=== PATIENT | male | born 1980 | race Caucasian/White ===

== ENCOUNTER → 2020-08-12 | Outpatient (CLI) | payer OTHER ==
--- NOTE | 2020-08-12 16:12 | XR ---
Cervical spine with flexion and extension HISTORY: M 54.2 7 views of the cervical spine There is reversal the normal cervical lordosis. There is no evident foraminal encroachment. Cervical vertebral bodies show preserved height. Anterolisthesis grade 1 C3-4, C4-5, there is loss of disc hei ght C5-6 and C6-7 with associated spondylosis. Minimal accentuated anterolisthesis noted at C5-6 on f lexion views of approximately 2 mm normalizes on extension as does the listhesis at C3-4. At C4-5 the re is a retrolisthesis grade 1 on extension view approximately 2 mm. Vacuum phenomenon also noted at the intervertebral disc spaces at C5-6 and C6-7. Set arthropathy changes are present. IMPRESSION: Degenerative disc disease, facet arthropathy, spinal listhesis.
== END | disposition home or self-care (01) ==
LOC: RADXRMAIN 14:42
PROVIDERS: ATTEND Family Medicine
DX: M50.30 Other cervical disc degeneration, unspecified cervical region (principal); M12.88 Other specific arthropathies, not elsewhere classified, other specified site
CPT/HCPCS: 72052

== ENCOUNTER → 2021-08-26 | Outpatient (CLI) | payer OTHER ==
[2021-08-26 20:18] LABS: Appearance,Urine Cloudy (Clear); Bilirubin,Urine Negative (Negative); Blood,Urine Negative (Negative); Color,Urine Yellow (Yellow); Ketones,Urine Trace mg/dL (Negative); Nitrite,Urine Negative (Negative); PH, Urine 7.5 (5.0-8.0); Specific Gravity,Urine 1.021 (1.001-1.030)
[2021-08-26 21:41] LABS: Amorphous Sediment,Urine Present /LPF (None Seen); Bacteria,Urine 3+ /HPF (None Seen)
== END | disposition home or self-care (01) ==
LOC: LABWHC1 13:31
PROVIDERS: ATTEND Family Medicine
DX: Z00.00 Encounter for general adult medical examination without abnormal findings (principal); R00.0 Tachycardia, unspecified
CPT/HCPCS: 36415; 81001

== ENCOUNTER → 2021-08-27 | Outpatient (CLI) | payer OTHER ==
[2021-08-27 19:05] LABS: Basophils # (A) 0.06 X 10*3/uL (0.00-0.10); Basophils % (A) 1.1 %; Eosinophils # (A) 0.22 X 10*3/uL (0.04-0.35); HCT 47.1 % (39.6-50.0); HGB 15.4 g/dL (13.0-17.0); Immature Grans, Automated 0.2 %; Lymphocytes # (A) 1.54 X 10*3/uL (0.90-5.00); Lymphocytes % (A) 28.2 %; MCH 29.2 pg (27.0-32.0); MCHC 32.7 g/dL (32.0-37.0); MCV 89.4 fL (80.0-97.0); Mean Platelet Volume 10.3 fL (9.5-12.2); Monocytes # (A) 0.63 X 10*3/uL (0.20-1.00); Monocytes % (A) 11.5 %; NRBC Per 100 WBC 0 /100 WBCS (0.0-0.0); Neutrophils # (A) 3.01 X 10*3/uL (1.80-7.70); Platelet Count 292 X 10*3/uL (140-440); RBC 5.27 X 10*6/uL (4.40-5.60); RDW 12.1 % (11.5-14.5); WBC 5.47 X 10*3/uL (4.50-10.00)
[2021-08-27 19:44] LABS: ALT 15 U/L (10-49); AST 17 U/L (14-35); African American GFR (CKD) 126.6 (60.0-200.0); Albumin 4.6 g/dL (3.8-4.9); Albumin/Globulin Ratio 1.69 (1.60-3.17); Alkaline Phosphatase 90 U/L (41-126); BUN/Creat Ratio 14.94 Ratio (12.00-20.00); Calcium 9.5 mg/dL (8.7-10.3); Chloride 104 mmol/L (96-109); Chol/HDL Ratio 2.71 Ratio; Globulin 2.8 g/dL (1.6-3.3); Glucose 87 mg/dL (70-110); LDL Cholesterol,Calculated 92.9 mg/dL (0.0-131.0); Non-African American GFR(CKD) 109.2 (60.0-200.0); Potassium 4.4 mmol/L (3.5-5.5); Sodium 140 mmol/L (135-145); Total Protein 7.4 g/dL (6.2-8.2); VLDL Calculation 17.02 mg/dL (5.00-40.00)
== END | disposition home or self-care (01) ==
LOC: LABWHC1 13:07
PROVIDERS: ATTEND Family Medicine
DX: Z00.00 Encounter for general adult medical examination without abnormal findings (principal); R00.0 Tachycardia, unspecified
CPT/HCPCS: 36415; 80053; 80061; 84443; 85025

== ENCOUNTER 2022-05-31 07:46 | Observation (INO) | payer OTHER ==
[2022-05-31] MEDS ORDERED: SODIUM CHLORIDE 0.9% 1,000 ML IV STA ×3 (07:56→11:30)
[2022-05-31] MEDS ORDERED: KETOROLAC 15 MG/ML 1 ML VIAL IVP STA (07:56)
--- NOTE | 2022-05-31 08:33 | ED ---
Abdominal Pain HPI - General Chief Complaint: Abdominal Pain Stated Complaint: poss kidney infection Time Seen by Provider: 05/31/22 07:56 Source: patient, RN notes reviewed Mode of arrival: ambulatory Limitations: no limitations - History of Present Illness Initial Comments: This is a 41-year-old male who presents to the emergency department with left f lank pain. States that he was diagnosed with a kidney stone on the left side in March. He had been doing okay, however last night he began to develop severe pain in the left flank wrapping around into the abdomen. Also notes fevers and chills. Denies any urinary symptoms, nausea, or vomiting. Denies any sore throat, cough, dyspnea, chest pain, palpitations, nausea, vomiting, diarrhea, or headaches. MD Complaint: flank pain Onset/Timin -: days(s) Location: L flank Associated Symptoms: fever, chills - Related Data Home Medications Medication Instructions Recorded Confirmed No Known Home Medications 05/31/22 05/31/22 Allergies Allergy/AdvReac Type Severity Reaction Status Date / Time No Known Allergies Allergy Verified 05/31/22 12:40 Review of Systems ROS Statement: Those systems with pertinent positive or pertinent negative responses have been documented in the HPI. ROS Other: All systems not noted in ROS Statement are negative. Past Medical History Past Medical History: No Reported History History of Any Multi-Drug Resistant Organisms: None Reported Past Surgical History: Orthopedic Surgery Past Psychological History: No Psychological Hx Reported Smoking Status: Former smoker Past Alcohol Use History: Occasional Past Drug Use History: Methamphetamine General Exam Limitations: no limitations General appearance: alert, in no apparent distress Head exam: Present: atraumatic, normocephalic, normal inspection Respiratory exam: Present: normal lung sounds bilaterally. Absent: respiratory distress, wheezes, rales, rhonchi, stridor Cardiovascular Exam: Present: regular rate, normal rhythm, normal heart sounds. Absent: systolic murmur, diastolic murmur, rubs, gallop, clicks GI/Abdominal exam: Present: soft, normal bowel sounds. Absent: distended, tenderness, guarding, rebound, rigid Back exam: Present: CVA tenderness (L) Neurological exam: Present: alert, oriented X3, CN II-XII intact Psychiatric exam: Present: normal affect, normal mood Skin exam: Present: warm, dry, intact, normal color. Absent: rash Course Vital Signs 05/31/22 05/31/22 05/31/22 07:50 11:00 13:00 Temperature 99.8 F H 100.6 F H 101.3 F H Pulse Rate 118 H 108 H 107 H Pulse Rate [ Pulse Oximetery ] Respiratory 16 18 16 Rate Blood Pressure 114/71 127/84 112/65 Blood Pressure [Right Arm] O2 Sat by Pulse 100 100 97 Oximetry 05/31/22 05/31/22 14:00 14:49 Temperature 99.4 F 99.8 F H Pulse Rate Pulse Rate [ 107 H Pulse Oximetery ] Respiratory 16 Rate Blood Pressure Blood Pressure 118/64 [Right Arm] O2 Sat by Pulse 100 Oximetry Medical Decision Making - Medical Decision Making This is a 41-year-old male who presents to the emergency department for left flank pain. Was pt. sent in by a medical professional or institution? @ -No Did you speak to anyone other than the patient for history? @ -No Did you review nursing and triage notes? @ -Yes, and I agree, it is accurate with regards to the patient's symptoms. Were old charts reviewed? @ -Yes, computed tomography scan from 04/08/22 revealing a calculus in the left ureter and left kidney. Differential Diagnosis? @ -Differential Back Pain: Strain, zoster, cauda equina syndrome, epidural abscess, vertebral osteomyelitis, discitis, fracture, subluxation, disc herniation, DJD, spinal stenosis, dissection, AAA, pancreatitis, peptic ulcer disease, pyelonephritis, kidney stone, this is not meant to be an all-inclusive list. CT interpreted by me (1pt min.)? @ -Computed tomography scan of the abdomen and pelvis obtained. My interpretation identifies a left ureteral calculus with hydroureteronephrosis. What testing was considered but not performed? (CT, X-rays, U/S, labs)? Why? @ -None What meds were considered but not given? Why? @ -None Did you discuss the management of the patient with other professionals? @ -Yes, Dr. Gómez, urology, who advises admission with IV abx and keeping the patient NPO. I then spoke with Dr. Buckley, who accepts the patient for admission. Did you reconcile home meds? @ -No Was smoking cessation discussed for >3mins.? @ -No Was critical care preformed (if so, how long)? @ -No Were there social determinants of health that impacted care today? How? (Homelessness, low income, unemployed, alcoholism, drug addiction, transportation, low edu. Level, literacy, decrease access to med. care, alf, rehab)? @ -No Was there de-escalation of care discussed even if they declined? (Discuss DNR or withdrawal of care, Hospice)? @ -No What co-morbidities impacted this encounter? (DM, HTN, Smoking, COPD, CAD, C ancer, CVA, Hep., AIDS, mental health diagnosis, sleep apnea, morbid obesity)? @ -None Was patient admitted / discharged? @ -Admitted. Lab work obtained revealing leukocytosis. Urinalysis is consistent with infection. Computed tomography scan of the abdomen and pelvis reveals a left ureteral calculus with hydroureteronephrosis. Patient meets sepsis criteria with the leukocytosis, tachycardia, fever, and a known source of infection. Patient given 2 L bolus of IV fluids and started on maintenance fluids at 130 mL/hr. He was also given a dose of ceftriaxone with blood and urine cultures obtained prior. Toradol and later Ofirmev administered for the fever. Case discussed with Dr. Gómez, urology, who advised admission to medicine with urology on consult. He also requested the patient be kept NPO for possible surgical intervention today. Undiagnosed new problem with uncertain prognosis? @ -None Drug Therapy requiring intensive monitoring for toxicity (Heparin, Nitro, In sulin, Cardizem)? @ -None Were any procedures done? @ -None Diagnosis/symptom? @ -Sepsis secondary to UTI, left renal calculus Acute, or Chronic, or Acute on Chronic? @ -Acute Uncomplicated (without systemic symptoms) or Complicated (systemic symptoms)? @ -Complicated Side effects of treatment? @ -None Exacerbation, Progression, or Severe Exacerbation] @ -Not applicable Poses a threat to life or bodily function? @ -Yes This case was discussed in detail with the attending ED physician, Dr. Peng. Presentation, findings, and treatment plan discussed in detail as well. - Lab Data Result diagrams: 05/31/22 08:12 05/31/22 08:12 Lab Results 05/31/22 05/31/22 05/31/22 Range/Units 08:12 08:12 08:12 WBC 22.4 H (3.8-10.6) k/uL RBC 4.86 (4.30-5.90) m/uL Hgb 14.8 (13.0-17.5) gm/dL Hct 42.1 (39.0-53.0) % MCV 86.6 (80.0-100.0) fL MCH 30.4 (25.0-35.0) pg MCHC 35.1 (31.0-37.0) g/dL RDW 12.6 (11.5-15.5) % Plt Count 293 (150-450) k/uL MPV 7.2 Neutrophils % 91 % Lymphocytes % 3 % Monocytes % 4 % Eosinophils % 1 % Basophils % 0 % Neutrophils # 20.3 H (1.3-7.7) k/uL Lymphocytes # 0.6 L (1.0-4.8) k/uL Monocytes # 1.0 (0-1.0) k/uL Eosinophils # 0.2 (0-0.7) k/uL Basophils # 0.0 (0-0.2) k/uL Sodium 136 L (137-145) mmol/L Potassium 4.1 (3.5-5.1) mmol/L Chloride 103 (98-107) mmol/L Carbon Dioxide 24 (22-30) mmol/L Anion Gap 9 mmol/L BUN 12 (9-20) mg/dL Creatinine 1.29 H (0.66-1.25) mg/dL Est GFR (CKD-EPI)AfAm 78 (>60 ml/min/1.73 sqM) Est GFR (CKD-EPI)NonAf 68 (>60 ml/min/1.73 sqM) Glucose 110 H (74-99) mg/dL Plasma Lactic Acid Blake 1.5 (0.7-2.0) mmol/L Calcium 9.3 (8.4-10.2) mg/dL Total Bilirubin 1.5 H (0.2-1.3) mg/dL AST 35 (17-59) U/L ALT 24 (4-49) U/L Alkaline Phosphatase 85 (38-126) U/L Total Protein 7.7 (6.3-8.2) g/dL Albumin 4.4 (3.5-5.0) g/dL Amylase 63 (30-110) U/L Lipase 94 (23-300) U/L Urine Color Urine Appearance (Clear) Urine pH (5.0-8.0) Ur Specific [place] (1.001-1.035) Urine Protein (Negative) Urine Glucose (UA) (Negative) Urine Ketones (Negative) Urine Blood (Negative) Urine Nitrite (Negative) Urine Bilirubin (Negative) Urine Urobilinogen (<2.0) mg/dL Ur Leukocyte Esterase (Negative) Urine RBC (0-5) /hpf Urine WBC (0-5) /hpf Amorphous Sediment (None) /hpf Urine Bacteria (None) /hpf Urine Mucus (None) /hpf 05/31/22 Range/Units 08:12 WBC (3.8-10.6) k/uL RBC (4.30-5.90) m/uL Hgb (13.0-17.5) gm/dL Hct (39.0-53.0) % MCV (80.0-100.0) fL MCH (25.0-35.0) pg MCHC (31.0-37.0) g/dL RDW (11.5-15.5) % Plt Count (150-450) k/uL MPV Neutrophils % % Lymphocytes % % Monocytes % % Eosinophils % % Basophils % % Neutrophils # (1.3-7.7) k/uL Lymphocytes # (1.0-4.8) k/uL Monocytes # (0-1.0) k/uL Eosinophils # (0-0.7) k/uL Basophils # (0-0.2) k/uL Sodium (137-145) mmol/L Potassium (3.5-5.1) mmol/L Chloride (98-107) mmol/L Carbon Dioxide (22-30) mmol/L Anion Gap mmol/L BUN (9-20) mg/dL Creatinine (0.66-1.25) mg/dL Est GFR (CKD-EPI)AfAm (>60 ml/min/1.73 sqM) Est GFR (CKD-EPI)NonAf (>60 ml/min/1.73 sqM) Glucose (74-99) mg/dL Plasma Lactic Acid Blake (0.7-2.0) mmol/L Calcium (8.4-10.2) mg/dL Total Bilirubin (0.2-1.3) mg/dL AST (17-59) U/L ALT (4-49) U/L Alkaline Phosphatase (38-126) U/L Total Protein (6.3-8.2) g/dL Albumin (3.5-5.0) g/dL Amylase (30-110) U/L Lipase (23-300) U/L Urine Color Yellow Urine Appearance Cloudy (Clear) Urine pH 7.5 (5.0-8.0) Ur Specific [place] 1.019 (1.001-1.035) Urine Protein 1+ H (Negative) Urine Glucose (UA) Negative (Negative) Urine Ketones 1+ H (Negative) Urine Blood Moderate H (Negative) Urine Nitrite Negative (Negative) Urine Bilirubin Negative (Negative) Urine Urobilinogen 3.0 (<2.0) mg/dL Ur Leukocyte Esterase Large H (Negative) Urine RBC 15 H (0-5) /hpf Urine WBC 125 H (0-5) /hpf Amorphous Sediment Few H (None) /hpf Urine Bacteria Rare H (None) /hpf Urine Mucus Occasional H (None) /hpf - Radiology Data Radiology results: report reviewed, image reviewed Disposition Clinical Impression: Sepsis secondary to UTI, Renal calculus, left Disposition: ADMITTED IP TO THIS HOSP
[2022-05-31 08:53] LABS: Basophils % (A) 0 %; Eosinophils # (A) 0.2 k/uL (0-0.7); Eosinophils % (A) 1 %; HCT 42.1 % (39.0-53.0); HGB 14.8 gm/dL (13.0-17.5); Lymphocytes # (A) 0.6 k/uL (1.0-4.8); Lymphocytes % (A) 3 %; MCH 30.4 pg (25.0-35.0); MCHC 35.1 g/dL (31.0-37.0); MCV 86.6 fL (80.0-100.0); Mean Platelet Volume 7.2; Monocytes % (A) 4 %; Neutrophils # (A) 20.3 k/uL (1.3-7.7); Neutrophils % (A) 91 %; Platelet Count 293 k/uL (150-450); RBC 4.86 m/uL (4.30-5.90); RDW 12.6 % (11.5-15.5); WBC 22.4 k/uL (3.8-10.6)
[2022-05-31 09:01] LABS: Albumin 4.4 g/dL (3.5-5.0); Calcium 9.3 mg/dL (8.4-10.2); Potassium 4.1 mmol/L (3.5-5.1); Total Bilirubin 1.5 mg/dL (0.2-1.3); Total Protein 7.7 g/dL (6.3-8.2)
[2022-05-31 09:20] LABS: Amorphous Sediment,Urine Few /hpf; Appearance,Urine Cloudy (Clear); Bacteria,Urine Rare /hpf; Bilirubin,Urine Negative (Negative); Blood,Urine Moderate (Negative); Color,Urine Yellow; Glucose,Urine (UA) Negative (Negative); Ketones,Urine 1+ (Negative); Leukocyte Esterase,Urine Large (Negative); Mucus,Urine Occasional /hpf; Nitrite,Urine Negative (Negative); PH, Urine 7.5 (5.0-8.0); Protein,Urine 1+ (Negative); RBC,Urine 15 /hpf (0-5); Specific Gravity,Urine 1.019 (1.001-1.035); WBC,Urine 125 /hpf (0-5)
[2022-05-31] MEDS ORDERED: cefTRIAXone IN SWFI 1,000 MG/10 ML SYRINGE IVP STA (09:31)
--- NOTE | 2022-05-31 10:35 | CT ---
EXAMINATION TYPE: CT abdomen pelvis wo con CT DLP: 586.8 mGycm, Automated exposure control for dose reduction was used. DATE OF EXAM: 05/31/2022 8:57 AM COMPARISON: CT abdomen pelvis most recent from 04/08/2022 . CLINICAL INDICATION:Male, 41 years old with history of Left flank pain; Left sided abdominal pain, re cent kidney stones, fever TECHNIQUE: Standard CT of the abdomen and pelvis without IV or oral contrast. Lack of IV or oral co ntrast limits evaluation of solid and hollow organ viscera. Coronal and sagittal reformats were perfo rmed. FINDINGS: LOWER CHEST: Unremarkable ABDOMEN LIVER: Unremarkable noncontrast appearance. GALLBLADDER AND BILE DUCTS: Unremarkable. PANCREAS: Unremarkable noncontrast appearance. SPLEEN: Unremarkable noncontrast appearance. ADRENAL GLANDS: Unremarkable noncontrast appearance. KIDNEYS AND URETERS: Mild left hydroureteronephrosis with an obstructing 5 mm calculus in the distal third of the left ureter. There is mild edematous appearance with perinephric fat stranding involving the left kidney. Additional left periureteral fat screening identified. Nonobstructive bilateral pun ctate renal calculi measuring up to 2 mm. PELVIS BLADDER: Incompletely distended but grossly unremarkable. REPRODUCTIVE: Unremarkable. ABDOMEN & PELVIS STOMACH AND BOWEL: Stomach and duodenum are unremarkable. No focal wall thickening or surrounding inf lammatory changes. No evidence of bowel obstruction. PERITONEUM: No evidence of pneumoperitoneum or free fluid. VASCULATURE: No evidence of aortic aneurysm. MUSCULOSKELETAL: No acute osseous abnormalities LYMPH NODES: No gross evidence for lymphadenopathy. SOFT TISSUE/ABDOMINAL WALL: Unremarkable IMPRESSION: Mild left hydroureteronephrosis with an obstructing 5 mm calculus in the distal left ureter.
[2022-05-31] MEDS ORDERED: ACETAMINOPHEN IV (For NPO) 1,000 MG in EMPTY BAG 1 BAG IVPB STA (11:45)
[2022-05-31] MEDS ORDERED: NALOXONE 0.4 MG/ML 1 ML VIAL IV PRN (11:51)
[2022-05-31] MEDS ORDERED: ONDANSETRON 4 MG/2 ML VIAL IVP PRN (11:51)
[2022-05-31] MEDS ORDERED: MORPHINE SULFATE 4 MG/ML SYRINGE IV PRN (11:51)
[2022-05-31] MEDS: KETOROLAC 15 MG/ML 1 ML VIAL IVP PRN (13:53)
--- NOTE | 2022-05-31 14:37 | P.GSCN ---
History of Present Illness Consult date: 05/31/22 Reason for Consult: Urosepsis, left renal calculus Requesting physician: Sanjuana Sena History of present illness: The patient is a 41-year-old male who presented to the emergency department today with left flank pain that radiates to his abdomen and left groin. The patient was seen in our emergency department on 04/08/22 for left flank pain and was found to have a 3 mm obstructing calculus in the proximal left ureter with mild hydronephrosis. The patient was giving a prescription for Flomax and Toradol and discharged and directed to follow up with urology. The patient did not follow up with urology as his symptoms resolved. Today's abdomen/pelvis CT without contrast shows mild left hydroureteronephrosis with obstructing 5 mm calculus in the distal left ureter. Leukocytosis present with a WBC of 22.4, he is tachycardic and febrile. He was getting a 2 L bolus of IV fluids and given 1 g of Rocephin. Urinalysis suggestive of action, urine culture pending. Review of Systems - Constitutional Reports chills, Reports fever - EENT Ears, nose, mouth and throat: Reports headache - Cardiovascular Reports as per HPI, Denies chest pain, Denies shortness of breath - Gastrointestinal Reports nausea, Reports vomiting - Genitourinary Reports flank pain, Reports kidney stones, Denies dysuria, Denies hematuria, Denies urinary frequency Past Medical History Past Medical History: No Reported History History of Any Multi-Drug Resistant Organisms: None Reported Past Surgical History: Orthopedic Surgery Past Psychological History: No Psychological Hx Reported Smoking Status: Former smoker Past Alcohol Use History: Occasional Past Drug Use History: Methamphetamine Medications and Allergies Home Medications Medication Instructions Recorded Confirmed Type No Known Home Medications 05/31/22 05/31/22 History Allergies Allergy/AdvReac Type Severity Reaction Status Date / Time No Known Allergies Allergy Verified 05/31/22 12:40 Surgical - Exam Vital Signs Temp Pulse Resp BP Pulse Ox 99.8 F H 118 H 16 114/71 100 05/31/22 07:50 05/31/22 07:50 05/31/22 07:50 05/31/22 07:50 05/31/22 07:50 General: Well developed, well nourished. No acute distress. HEENT: Head is atraumatic, normocephalic. Lungs: Respirations even and nonlabored. Abdomen/GI: Soft, non-distended. Left lower abdomen and CVA tenderness : No suprapubic tenderness. Skin: Warm and dry and flushed Neurologic: Alert and oriented 3, CN II-XII grossly intact. No focal deficits. Psychiatric: Appropriate mood and affect. Results - Labs 05/31/22 08:12 05/31/22 08:12 Abnormal Lab Results - Last 24 Hours (Table) 05/31/22 05/31/22 05/31/22 Range/Units 08:12 08:12 08:12 WBC 22.4 H (3.8-10.6) k/uL Neutrophils # 20.3 H (1.3-7.7) k/uL Lymphocytes # 0.6 L (1.0-4.8) k/uL Sodium 136 L (137-145) mmol/L Creatinine 1.29 H (0.66-1.25) mg/dL Glucose 110 H (74-99) mg/dL Total Bilirubin 1.5 H (0.2-1.3) mg/dL Urine Protein 1+ H (Negative) Urine Ketones 1+ H (Negative) Urine Blood Moderate H (Negative) Ur Leukocyte Esterase Large H (Negative) Urine RBC 15 H (0-5) /hpf Urine WBC 125 H (0-5) /hpf Amorphous Sediment Few H (None) /hpf Urine Bacteria Rare H (None) /hpf Urine Mucus Occasional H (None) /hpf Diabetes panel 05/31/22 Range/Units 08:12 Sodium 136 L (137-145) mmol/L Potassium 4.1 (3.5-5.1) mmol/L Chloride 103 (98-107) mmol/L Carbon Dioxide 24 (22-30) mmol/L BUN 12 (9-20) mg/dL Creatinine 1.29 H (0.66-1.25) mg/dL Glucose 110 H (74-99) mg/dL Calcium 9.3 (8.4-10.2) mg/dL AST 35 (17-59) U/L ALT 24 (4-49) U/L Alkaline Phosphatase 85 (38-126) U/L Total Protein 7.7 (6.3-8.2) g/dL Albumin 4.4 (3.5-5.0) g/dL Calcium panel 05/31/22 Range/Units 08:12 Calcium 9.3 (8.4-10.2) mg/dL Albumin 4.4 (3.5-5.0) g/dL Pituitary panel 05/31/22 Range/Units 08:12 Sodium 136 L (137-145) mmol/L Potassium 4.1 (3.5-5.1) mmol/L Chloride 103 (98-107) mmol/L Carbon Dioxide 24 (22-30) mmol/L BUN 12 (9-20) mg/dL Creatinine 1.29 H (0.66-1.25) mg/dL Glucose 110 H (74-99) mg/dL Calcium 9.3 (8.4-10.2) mg/dL Adrenal panel 05/31/22 Range/Units 08:12 Sodium 136 L (137-145) mmol/L Potassium 4.1 (3.5-5.1) mmol/L Chloride 103 (98-107) mmol/L Carbon Dioxide 24 (22-30) mmol/L BUN 12 (9-20) mg/dL Creatinine 1.29 H (0.66-1.25) mg/dL Glucose 110 H (74-99) mg/dL Calcium 9.3 (8.4-10.2) mg/dL Total Bilirubin 1.5 H (0.2-1.3) mg/dL AST 35 (17-59) U/L ALT 24 (4-49) U/L Alkaline Phosphatase 85 (38-126) U/L Total Protein 7.7 (6.3-8.2) g/dL Albumin 4.4 (3.5-5.0) g/dL - Imaging CT scan - abdomen: report reviewed CT scan - pelvis: report reviewed Assessment and Plan Assessment: The patient was examined in the emergency department. Complaints of fever and chills and appears flushed and is mildly tachycardic. T-max 101.3F. Blood cultures and urine cultures pending. He denies any nausea or vomiting. The patient denies any hematuria, urinary frequency, or dysuria. He does report having a headache. No history of cancer or recurrent UTIs. Surgical history includes a right orchiopexy as a child. The patient will proceed to the OR today for a cystoscopy and left stent insertion with Dr. Gómez. He will be scheduled for a secondary procedure for stone removal once his infection clears. Plan: - Continue IV fluids - Continue current pain regimen - Continue Rocephin - Awaiting urine cultures - Keep patient nothing by mouth - Cystoscopy and left ureteral stent insertion today with Dr. Gómez Thank you for this consultation Impression and plan of care have been directed as dictated by the signing physician. Monik Brush nurse practitioner acting as scribe for signing physician. Monik Brush [facility]- Palliative Care/Urology [facility] [id number] Email: [email or web address] I personally performed and participated in the history, physical, the decision making, I agree with the assessment and plan of [employer]ETING COORDINATOR Reviewed CT evidence of 5 mm left sided distal stone with hydronephrosis. patient septic secondary to an obstructing stone. Discussed with him next step to proceed with a cystoscopy and left ureteral stent insertion
[2022-05-31] MEDS ORDERED: LACTATED RINGERS 1,000 ML IV ONE (15:00)
--- NOTE | 2022-05-31 15:22 | P.HPIM ---
History of Present Illness H&P Date: 05/31/22 Chief Complaint: Flank pain 41-year-old man with medical history of recent nonobstructing stone in March 2022 went home with Flomax and instructions to follow-up with urology re- presented today with worsening flank pain, fevers, chills. Patient says that he's had this pain since the beginning of March but was given some medication which helped relieve the pain initially, however, yesterday his pain returned with severe shortness of his left side with radiation down to the groin. It was associated fevers, chills, shakes, sweats. The pain became so severe that he presented to the emergency room for further evaluation. Patient reports fevers, chills, diaphoresis, sweats, shakes. Patient denies nausea, vomiting, chest pain, palpitations, syncopal, presyncope, cough, dyspnea, abdominal pain, constipation, diarrhea, dyschezia, numbness/weakness of extremities. In emergency room, patient was febrile to a T-max of 101.3, 112/65, heart rate 107, 97% on room air. CBC showed a white blood cell count 22.4, otherwise unremarkable. Chemistries showed hyponatremia to 136, creatinine of 1.29, otherwise unremarkable. Liver function tests are unremarkable. Amylase was 63, lipase is 94. UA showed 1+ glucose, 1+ ketones, moderate blood, large leukocyte esterase, 15 red blood cells, 125 white blood cells, amorphous sediment, rare bacteria. Abdomen/pelvis CT showed left hydroureteronephrosis with an obstructing 5 mm calculus in the distal left ureter. Case was discussed with the emergency room physician decision was made to admit the patient for sepsis secondary to obstructive nephrolithiasis. All Systems reviewed and pertinent positives and negatives noted in HPI, all other symptoms are negative Gen: awake, alert HEENT: normocephalic, atraumatic, good hearing acuity, moist mucous membranes Resp: good air exchange, breathing comfortably with no accessory muscle use CVS: good distal perfusion x 4, GI: soft, NTTP, ND : no SPT, left-sided CVAT, hall catheter not present MSK: no pitting edema, no clubbing Neuro: non-focal, moving all extremities Psych: cooperative, euthymic mood Labs and imaging as above Assessment: Sepsis Left-sided pyelonephritis Obstructive nephrolithiasis Left hydroureteronephrosis Plan: Vital signs reviewed in noted above Lab work including CBC, BMP, liver function tests, UA, amylase, lipase were reviewed and noted above CT of the abdomen/pelvis was reviewed and noted above Case was discussed with the emergency room provider and decision was made to admit the patient for sepsis Case was discussed with the urologist who informs me that patient will be taken to operating room for nephroureteral stent placement Patient received 1 g of ceftriaxone in the emergency room, ordered additional 1 g of ceftriaxone for a total of 2 g Ordered 2 g ceftriaxone every 24 hours Follow up urine culture Follow blood culture IV fluids: Normal saline at 130 mL per hour Pain control: Toradol 50 mg IV every 6 hours when necessary + morphine 4 mg every 4 hours when necessary Nausea control: Zofran 4 mg IV every 8 hours when necessary Patient is full code Past Medical History Past Medical History: No Reported History History of Any Multi-Drug Resistant Organisms: None Reported Past Surgical History: Orthopedic Surgery Past Psychological History: No Psychological Hx Reported Smoking Status: Former smoker Past Alcohol Use History: Occasional Past Drug Use History: Methamphetamine Medications and Allergies Home Medications Medication Instructions Recorded Confirmed Type No Known Home Medications 05/31/22 05/31/22 History Allergies Allergy/AdvReac Type Severity Reaction Status Date / Time No Known Allergies Allergy Verified 05/31/22 12:40 Physical Exam Osteopathic Statement: *. No significant issues noted on an osteopathic structural exam other than those noted in the History and Physical/Consult. Vitals: Vital Signs Temp Pulse Pulse Resp BP BP Pulse Ox 05/31/22 14:49 99.8 F H 107 H 16 118/64 100 05/31/22 14:00 99.4 F 05/31/22 13:00 101.3 F H 107 H 16 112/65 97 05/31/22 11:00 100.6 F H 108 H 18 127/84 100 05/31/22 07:50 99.8 F H 118 H 16 114/71 100 Intake and Output 05/31/22 05/31/22 05/31/22 06:59 14:59 22:59 Other: Weight 97.522 kg Results CBC & Chem 7: 05/31/22 08:12 05/31/22 08:12 Labs: Abnormal Lab Results - Last 24 Hours (Table) 05/31/22 05/31/22 05/31/22 Range/Units 08:12 08:12 08:12 WBC 22.4 H (3.8-10.6) k/uL Neutrophils # 20.3 H (1.3-7.7) k/uL Lymphocytes # 0.6 L (1.0-4.8) k/uL Sodium 136 L (137-145) mmol/L Creatinine 1.29 H (0.66-1.25) mg/dL Glucose 110 H (74-99) mg/dL Total Bilirubin 1.5 H (0.2-1.3) mg/dL Urine Protein 1+ H (Negative) Urine Ketones 1+ H (Negative) Urine Blood Moderate H (Negative) Ur Leukocyte Esterase Large H (Negative) Urine RBC 15 H (0-5) /hpf Urine WBC 125 H (0-5) /hpf Amorphous Sediment Few H (None) /hpf Urine Bacteria Rare H (None) /hpf Urine Mucus Occasional H (None) /hpf
[2022-05-31] MEDS ORDERED: LIDOCAINE 2% INJ 20 MG/ML (2 ML VIAL) ONE (15:33)
[2022-05-31] MEDS ORDERED: GENTAMICIN 40 MG/ML 2 ML VIAL ONE (15:33)
[2022-05-31] MEDS ORDERED: fentaNYL (PF) 50 MCG/ML 2 ML AMP ONE (15:33)
[2022-05-31] MEDS ORDERED: MIDAZOLAM 2 MG/2 ML VIAL ONE (15:33)
[2022-05-31] MEDS ORDERED: PROPOFOL 10 MG/ML 20 ML VIAL IV ONE (15:33)
[2022-05-31] MEDS ORDERED: SODIUM CHLORIDE 0.9% 50 ML with GENTAMICIN 80 MG IV ONE ×2 (15:50)
--- NOTE | 2022-05-31 16:38 | FL ---
Intraoperative/procedural fluoroscopic services were provided. Total fluoroscopy time is 5 seconds wi th a total of 1 submitted images to PACS. Please see the operative/procedural note for further detail s. DAP: [id number]
[2022-05-31] MEDS: ACETAMINOPHEN IV (For NPO) 1,000 MG in EMPTY BAG 1 BAG IVPB PRN (19:24)
[2022-06-01] MEDS: ACETAMINOPHEN IV (For NPO) 1,000 MG in EMPTY BAG 1 BAG IVPB PRN ×2 (04:25→13:59)
--- NOTE | 2022-06-01 10:28 | P.PN ---
Subjective Progress Note Date: 06/01/22 Principal diagnosis: Left renal calculus, urosepsis The patient is a 41-year-old male who presented to the emergency department today with left flank pain that radiates to his abdomen and left groin. The patient was seen in our emergency department on 04/08/22 for left flank pain and was found to have a 3 mm obstructing calculus in the proximal left ureter with mild hydronephrosis. The patient was giving a prescription for Flomax and Toradol and discharged and directed to follow up with urology. The patient did not follow up with urology as his symptoms resolved. Today's abdomen/pelvis CT without contrast shows mild left hydroureteronephrosis with obstructing 5 mm calculus in the distal left ureter. Leukocytosis present with a WBC of 22.4, he is tachycardic and febrile. He was getting a 2 L bolus of IV fluids and given 1 g of Rocephin. Urinalysis suggestive of action, urine culture pending. 05/31 The patient was examined in the emergency department. Complaints of fever and chills and appears flushed and is mildly tachycardic. T-max 101.3F. Blood cultures and urine cultures pending. He denies any nausea or vomiting. The patient denies any hematuria, urinary frequency, or dysuria. He does report having a headache. No history of cancer or recurrent UTIs. Surgical history includes a right orchiopexy as a child. The patient will proceed to the OR to day for a cystoscopy and left stent insertion with Dr. Gómez. He will be scheduled for a secondary procedure for stone removal once his infection clears. Objective - Vital Signs Vital signs: Vital Signs Temp 99.1 F 06/01/22 07:20 Pulse 111 H 06/01/22 07:20 Resp 16 06/01/22 07:20 BP 111/70 06/01/22 07:20 Pulse Ox 97 06/01/22 07:20 FiO2 Intake & Output 05/31/22 06/01/22 06/01/22 18:59 06:59 18:59 Intake Total 952 Output Total 377 850 600 Balance 575 -850 -600 Weight 97.522 kg Intake: IV 952 Output: Urine 375 850 600 Estimated Blood Loss 2 - Exam General: Well developed, well nourished. No acute distress. HEENT: Head is atraumatic, normocephalic. Lungs: Respirations even and nonlabored. Abdomen/GI: Soft, non-distended. No guarding, rigidity, or abdominal tenderness. Skin: Warm and dry Neurologic: Alert and oriented 3, CN II-XII grossly intact. No focal deficits. Psychiatric: Appropriate mood and affect. - Labs CBC & Chem 7: 05/31/22 08:12 05/31/22 08:12 Labs: Microbiology - Last 24 Hours (Table) 05/31/22 08:12 Urine Culture - Preliminary Urine,Voided Assessment and Plan Assessment: POD #1 the patient is resting in bed. He reports his pain has improved significantly. He is able to void without difficulty. Hematuria was noted, which is expected finding post stent placement. He denies any nausea or vomiting. He has ran low-grade fevers overnight and is still tachycardic. Blood and urine cultures are pending. The patient should not be discharged until he is fever free for 24 hours. He will be scheduled for a secondary procedure for stone removal once his infection clears (1) Renal calculus, left Current Visit: Yes Status: Acute Code(s): N20.0 - CALCULUS OF KIDNEY SNOMED Code(s): 74031122 Plan: - Continue current pain regimen - Continue Rocephin - Awaiting urine and blood cultures - Anticipate discharge within the next 24-48 hours - Outpatient secondary procedure for stone removal once his infection clears Impression and plan of care have been directed as dictated by the signing physician. Monik Brush nurse practitioner acting as scribe for signing physician. Monik Brush [facility] Palliative Care/Urology [facility] [id number] Email: [email or web address] I personally performed and participated in the history, physical, the decision making, I agree with the assessment and plan of STEM ROLLER
--- NOTE | 2022-06-01 10:54 | P.PN ---
Subjective Progress Note Date: 06/01/22 Patient still spiking low-grade fevers, but had successful stent placement yesterday. Feels much better, pain is well controlled. Gen: awake, alert HEENT: normocephalic, atraumatic, good hearing acuity, moist mucous membranes Resp: good air exchange, breathing comfortably with no accessory muscle use CVS: good distal perfusion x 4, GI: soft, NTTP, ND : no SPT, no CVAT, hall catheter not present MSK: no pitting edema, no clubbing Neuro: non-focal, moving all extremities Psych: cooperative, euthymic mood Hospital course: 41-year-old man with medical history of recent nonobstructing stone in March 2022 went home with Flomax and instructions to follow-up with urology re- presented today with worsening flank pain, fevers, chills. In emergency room, patient was febrile to a T-max of 101.3, 112/65, heart rate 107, 97% on room air. CBC showed a white blood cell count 22.4, otherwise unremarkable. Chemistries showed hyponatremia to 136, creatinine of 1.29, otherwise unremarkable. Liver function tests are unremarkable. Amylase was 63, lipase is 94. UA showed 1+ glucose, 1+ ketones, moderate blood, large leukocyte esterase, 15 red blood cells, 125 white blood cells, amorphous sediment, rare bacteria. Abdomen/pelvis CT showed left hydroureteronephrosis with an obstructing 5 mm melly culus in the distal left ureter. Case was discussed with the emergency room physician decision was made to admit the patient for sepsis secondary to obstructive nephrolithiasis. Assessment: Sepsis Left-sided pyelonephritis Obstructive nephrolithiasis Left hydroureteronephrosis Plan: Patient's T-max is 99.5, 111/70, 111, 97% on room air CBC, basic metabolic panel, magnesium ordered for tomorrow Case discussed with urology, they like to keep the patient for another day given low-grade temperatures. Continue 2 g ceftriaxone every 24 hours Follow up urine culture Follow blood culture IV fluids: Normal saline at 130 mL per hour Pain control: Toradol 50 mg IV every 6 hours when necessary + morphine 4 mg every 4 hours when necessary Nausea control: Zofran 4 mg IV every 8 hours when necessary Patient is full code Objective - Vital Signs Vital signs: Vital Signs Temp 99.1 F 06/01/22 07:20 Pulse 111 H 06/01/22 07:20 Resp 16 06/01/22 07:20 BP 111/70 06/01/22 07:20 Pulse Ox 97 06/01/22 07:20 FiO2 Intake & Output 05/31/22 06/01/22 06/01/22 18:59 06:59 18:59 Intake Total 952 Output Total 377 850 600 Balance 575 -850 -600 Weight 97.522 kg Intake: IV 952 Output: Urine 375 850 600 Estimated Blood Loss 2 - Labs CBC & Chem 7: 05/31/22 08:12 05/31/22 08:12 Labs: Microbiology - Last 24 Hours (Table) 05/31/22 08:12 Urine Culture - Preliminary Urine,Voided
--- NOTE | 2022-06-01 12:19 | P.OP ---
Date of Procedure: 06/01/22 Preoperative Diagnosis: Left ureteral stone Postoperative Diagnosis: Same Procedure(s) Performed: Cystoscopy left ureteral stent Implants: 6-Paraguayan by 28 cm stent in the left ureter Anesthesia: KANDI Surgeon: Hung Gómez Estimated Blood Loss (ml): 1 Pathology: none sent Condition: stable Disposition: PACU Indications for Procedure: This is a 41-year-old male with history of a 5 mm left-sided distal stone, patient is septic on presentation. Discussed with him given the obstructive stone and sepsis I recommend proceeding stent insertion. Discussed with him the risk of surgery which includes but not limited to bleeding, infection, injury to the ureter. Discussed he will eventually require definitive stone management after his sepsis resolves. He understood all the risk and agreed to proceed Description of Procedure: Patient brought to the operating room, general anesthesia was induced. He was prepped and draped in sterile fashion and placed in dorsal lithotomy position. Cystoscopy fitted with a 21-Paraguayan sheath was inserted per urethra, cystoscopy was performed which showed no abnormality within the bladder. Attention was then carried to the left ureteral orifice which was intubated with a sensor wire. Next a ureteral stent was passed over the wire, the proximal curl was visualized on fluoroscopy and the distal curl was visualized using the cystoscope, cloudy urine was drained from the collecting system. The bladder was emptied at the end of the day case. Patient tolerated the procedure well was taken to recovery in stable condition
[2022-06-01] MEDS: KETOROLAC 15 MG/ML 1 ML VIAL IVP PRN (19:53)
[2022-06-01 20:59] VITALS: RESP 17
[2022-06-02] MEDS: KETOROLAC 15 MG/ML 1 ML VIAL IVP PRN (00:55)
[2022-06-02 07:26] VITALS: BP 121/80; PULSE 99; TEMP 98.9
--- NOTE | 2022-06-02 08:00 | P.PN ---
Subjective Progress Note Date: 06/02/22 Principal diagnosis: Left renal calculus, urosepsis The patient is a 41-year-old male who presented to the emergency department today with left flank pain that radiates to his abdomen and left groin. The patient was seen in our emergency department on 04/08/22 for left flank pain and was found to have a 3 mm obstructing calculus in the proximal left ureter with mild hydronephrosis. The patient was giving a prescription for Flomax and Toradol and discharged and directed to follow up with urology. The patient did not follow up with urology as his symptoms resolved. Today's abdomen/pelvis CT without contrast shows mild left hydroureteronephrosis with obstructing 5 mm calculus in the distal left ureter. Leukocytosis present with a WBC of 22.4, he is tachycardic and febrile. He was getting a 2 L bolus of IV fluids and given 1 g of Rocephin. Urinalysis suggestive of action, urine culture pending. 05/31 The patient was examined in the emergency department. Complaints of fever and chills and appears flushed and is mildly tachycardic. T-max 101.3F. Blood cultures and urine cultures pending. He denies any nausea or vomiting. The patient denies any hematuria, urinary frequency, or dysuria. He does report having a headache. No history of cancer or recurrent UTIs. Surgical history includes a right orchiopexy as a child. The patient will proceed to the OR to day for a cystoscopy and left stent insertion with Dr. Gómez. He will be scheduled for a secondary procedure for stone removal once his infection clears. 06/01 POD #1 the patient is resting in bed. He reports his pain has improved significantly. He is able to void without difficulty. Hematuria was noted, which is expected finding post stent placement. He denies any nausea or vomiting. He has ran low-grade fevers overnight and is still tachycardic. Blood and urine cultures are pending. The patient should not be discharged until he is fever free for 24 hours. He will be scheduled for a secondary procedure for stone removal once his infection clears Objective - Vital Signs Vital signs: Vital Signs Temp 98.9 F 06/02/22 07:25 Pulse 99 06/02/22 07:25 Resp 17 06/02/22 07:25 BP 121/80 06/02/22 07:25 Pulse Ox 97 06/02/22 07:25 FiO2 Intake & Output 06/01/22 06/02/22 06/02/22 18:59 06:59 18:59 Output Total 900 975 Balance -900 -975 Output: Urine 900 975 Other: # Voids 200 - Exam General: Well developed, well nourished. No acute distress. HEENT: Head is atraumatic, normocephalic. Lungs: Respirations even and nonlabored. Abdomen/GI: Soft, non-distended. No guarding, rigidity, or abdominal tenderness. Skin: Warm and dry Neurologic: Alert and oriented 3, CN II-XII grossly intact. No focal deficits. Psychiatric: Appropriate mood and affect. - Labs CBC & Chem 7: 05/31/22 08:12 05/31/22 08:12 Labs: Microbiology - Last 24 Hours (Table) 05/31/22 11:01 Blood Culture - Preliminary Blood No Growth after 24 hours 05/31/22 11:00 Blood Culture - Preliminary Blood No Growth after 24 hours Assessment and Plan Assessment: POD #2 The patient denies any flank or abdominal pain. His burning with urination and his headache has resolved. Tolerating a regular diet, no nausea or vomiting. He is afebrile today. From a urological stand the patient may be discharged. Recommend 10 days of oral antibiotics and Toradol. Our office will schedule his secondary procedure for stone removal. (1) Renal calculus, left Status: Acute Code(s): N20.0 - CALCULUS OF KIDNEY SNOMED Code(s): 78658682 Plan: - May be discharged from a urological standpoint - Recommend 10 days of oral antibiotics and Toradol upon discharge - Secondary procedure for stone removal will be scheduled by our office Impression and plan of care have been directed as dictated by the signing physician. Monik Brush nurse practitioner acting as scribe for signing physician. Monik Brush [facility] Palliative Care/Urology [facility] [email or web address] [id number] Email: [email or web address] I personally performed and participated in the history, physical, the decision making, I agree with the assessment and plan of SNOW REMOVAL/PLOWING
--- NOTE | 2022-06-02 10:29 | P.DS ---
Providers Date of admission: 05/31/22 12:48 Expected date of discharge: 06/02/22 Attending physician: Erin Buckley MD Consults: 05/31/22 11:30 Consult Physician Urgent Consulting Provider: Hung Gómez Consult Reason/Comments: Urosepsis, left renal calculus Do you want consulting provider notified?: Already Contacted Primary care physician: Stated None Hospital Course: Assessment: Sepsis Left-sided pyelonephritis Obstructive nephrolithiasis Left hydroureteronephrosis Hospital course: 41-year-old man with medical history of recent nonobstructing stone in March 2022 went home with Flomax and instructions to follow-up with urology re- presented today with worsening flank pain, fevers, chills. In emergency room, patient was febrile to a T-max of 101.3, 112/65, heart rate 107, 97% on room air. CBC showed a white blood cell count 22.4, otherwise unremarkable. Chemistries showed hyponatremia to 136, creatinine of 1.29, otherwise unremarkable. Liver function tests are unremarkable. Amylase was 63, lipase is 94. UA showed 1+ glucose, 1+ ketones, moderate blood, large leukocyte esterase, 15 red blood cells, 125 white blood cells, amorphous sediment, rare bacteria. Abdomen/pelvis CT showed left hydroureteronephrosis with an obstructing 5 mm calculus in the distal left ureter. Case was discussed with the emergency room physician decision was made to admit the patient for sepsis secondary to obstructive nephrolithiasis. Patient was taken to the operating room and had nephroureteral stent placed in the left side. Patient was monitored for an additional 24 hours while being treated with ceftriaxone. Patient's pain and fever profile completely improved. Patient was discharged home with an additional 5 days of antibiotics for a total 7 day course with instructions to follow-up with urology to undergo stone and stent removal after infection treatment. I spent 35 minutes coordinating this discharge on 06/02 Gen: awake, alert HEENT: normocephalic, atraumatic, good hearing acuity, moist mucous membranes Resp: good air exchange, breathing comfortably with no accessory muscle use CVS: good distal perfusion x 4, GI: soft, NTTP, ND : no SPT, no CVAT, hall catheter not present MSK: no pitting edema, no clubbing Neuro: non-focal, moving all extremities Psych: cooperative, euthymic mood Patient Condition at Discharge: Good Plan - Discharge Summary New Discharge Prescriptions: New Cefdinir [Omnicef] 300 mg PO Q12HR #10 capsule Discharge Medication List Cefdinir [Omnicef] 300 mg PO Q12HR #10 capsule 06/02/22 [Rx] Follow up Appointment(s)/Referral(s): None,Stated [Primary Care Provider] - 1-2 days Hung Gómez MD [STAFF PHYSICIAN] - 1 Week Discharge Disposition: HOME SELF-CARE
== END 2022-06-02 11:29 | disposition home or self-care (01) ==
LOC: EC 07:46 → OBSVTOIN 12:48 → 4SSUR 12:48 → INTOOBSV 12:48 → 4SSUR 15:31 → UNDODISIN 06-02 11:29
PROVIDERS: ADMIT Internal Medicine; ATTEND Internal Medicine
DX: A41.9 Sepsis, unspecified organism (principal); N13.2 Hydronephrosis with renal and ureteral calculous obstruction; E87.1 Hypo-osmolality and hyponatremia; Z87.891 Personal history of nicotine dependence
CPT/HCPCS: 36415; 74176; 80053; 81001; 82150; 83605; 83690; 85025; 87040; 87077; 87086; 87186; 96361; 96365; 96367; 96375; 96376; 99285

== ENCOUNTER → 2022-07-19 | Day surgery (SDC) | payer OTHER ==
[~2022-07-19] MED LIST: DEXAMETHASONE SOD PHOSPHATE 4 MG/ML 1 ML VIAL IV ONE; HYDROmorphone 0.5 MG/0.5 ML SYRINGE IVP PRN; LACTATED RINGERS 1,000 ML IV ONE; LACTATED RINGERS 1,000 ML IV SCH; LIDOCAINE 1% (10MG/ML) FOR IV START INTRADERMA PRN; LIDOCAINE 2% INJ 20 MG/ML (2 ML VIAL) ONE; MIDAZOLAM 2 MG/2 ML VIAL IV PRN; MIDAZOLAM 2 MG/2 ML VIAL ONE; NALOXONE 0.4 MG/ML 1 ML VIAL ONE; ONDANSETRON 4 MG/2 ML VIAL IVP ONE; PROPOFOL 10 MG/ML 20 ML VIAL IV ONE; fentaNYL (PF) 50 MCG/ML 2 ML AMP ONE
--- NOTE | 2022-07-19 06:49 | XR ---
EXAMINATION TYPE: XR KUB DATE OF EXAM: 07/19/2022 Comparison: 04/08/2022 Clinical History: 41-year-old male preop for left-sided kidney stone, N20.1 Findings: Left-sided ureteral stent is present. No definite suspicious calcification seen along the course of t he left ureter. Pelvic phleboliths are noted. Nonobstructive bowel gas pattern. [id number] stoo l. Impression: Left-sided ureteral stent. No definite suspicious calcifications are identified radiographically. Pel nat phleboliths.
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
[2022-07-19 08:26] VITALS: RESP 16; TEMP 97.1
[2022-07-19 09:59] VITALS: BP 115/76; PULSE 78
--- NOTE | 2022-07-19 11:53 | FL ---
EXAMINATION TYPE: FL guidance operating room DATE OF EXAM: 07/19/2022 FLUOROSCOPY Fluoroscopy time of 1 seconds was used during urologic intervention for left kidney stone. 1 image/s document/s the procedure. DOSE AREA PRODUCT (DAP) UGY*M,MGY*CM: [id number].
--- NOTE | 2022-07-26 08:56 | P.OP ---
Date of Procedure: 07/19/22 Preoperative Diagnosis: Left-sided ureteral stone Postoperative Diagnosis: Same Procedure(s) Performed: Cystoscopy, left ureteroscopy, holmium laser lithotripsy, stone basketing and stent removal Implants: none Anesthesia: EHSANA Surgeon: Hung Gómez Estimated Blood Loss (ml): 5 Pathology: other (left ureteral stone) Condition: stable Disposition: PACU Indications for Procedure: This is a 41-year-old male with history of a 5 mm left-sided distal ureteral stone. Underwent left-sided stent insertion on May 31 for septic stone. Presents today for definitive stone management. Option of ureteroscopy with holmium laser was discussed with him. Risk of bleeding infection injury to the ureter was discussed in detail. He understood all the risk and agreed to proceed with left-sided ureteroscopy, with holmium laser lithotripsy, stone basketing and stent remova Operative Findings: Left distal ureteral stone Description of Procedure: Patient brought to the operating room, general anesthesia was induced. He was prepped and draped in sterile fashion and placed in dorsal lithotomy position. Cystoscopy fitted with a 21-Korean sheath was inserted per urethra, cystoscopy was performed which showed no abnormality within the bladder. Next using a stent grasper the stent was removed intact. Next the semirigid ureteroscope was inserted per urethra and advanced up the left ureteral orifice, at this point a stone was encountered in the distal ureter. Using the holmium laser the stone was fragmented, sizable fragments were removed using the stone basket. At this time the ureteroscope was advanced up to the proximal ureter which showed no additional stones. Pullback ureteroscopy was performed showed no injury to ureter or any sizable fragments. There was no injury to the ureter or ureteral edema, thus a stent was not placed The bladder was emptied at the end of the case. Patient tolerated procedure well was taken to recovery in stable condition
== END ==
LOC: OR 05:45
PROVIDERS: ATTEND Urology
DX: N20.1 Calculus of ureter (principal); Z98.890 Other specified postprocedural states
CPT/HCPCS: 82365; 74018; 52353; C1769; J2250; J1100; J2310; J0690; J2405; J3010; J2704; J2001